=== PATIENT | female | born 1945 | race Native Hawaiian/Other Pacific Islander ===

== ENCOUNTER 2016-11-20 13:34 | Outpatient (CLI) | payer OTHER ==
[2016-11-20 15:18] LABS: POTASSIUM 4.3 mmol/L (3.6-5.2)
[2016-11-20 15:22] LABS: PLATELET COUNT 250 K/uL (152-353)
== END 2016-11-20 19:29 | disposition home or self-care (01) ==
LOC: LAB 13:34
PROVIDERS: Nurse Practitioner Family
DX: I10 Essential (primary) hypertension (principal); E78.4 Other hyperlipidemia; R73.09 Other abnormal glucose
CPT/HCPCS: 80053; 80061; 83036; 84439; 84443; 85027

== ENCOUNTER 2017-02-28 15:43 | Outpatient (CLI) | payer OTHER ==
[2017-02-28 16:13] LABS: PLATELET COUNT 253 K/uL (152-353)
[2017-02-28 16:25] LABS: POTASSIUM 4.4 mmol/L (3.6-5.2)
== END 2017-02-28 19:07 | disposition home or self-care (01) ==
LOC: LAB 15:43
PROVIDERS: Nurse Practitioner Family
DX: E78.4 Other hyperlipidemia (principal); R73.9 Hyperglycemia, unspecified; I10 Essential (primary) hypertension; R94.6 Abnormal results of thyroid function studies; N28.89 Other specified disorders of kidney and ureter; Z79.899 Other long term (current) drug therapy; E55.9 Vitamin D deficiency, unspecified; Z51.81 Encounter for therapeutic drug level monitoring
CPT/HCPCS: 80053; 80061; 82306; 82607; 83036; 84436; 84443; 85027

== ENCOUNTER 2017-04-09 13:32 | Outpatient (CLI) | payer OTHER | END 2017-04-09 14:45 | disposition home or self-care (01) | LOC: MAMMO 13:32 | DX: Z12.31 Encounter for screening mammogram for malignant neoplasm of breast (principal) | CPT/HCPCS: G0202-TC ==

== ENCOUNTER 2017-07-23 14:45 | Outpatient (CLI) | payer OTHER ==
[2017-07-23 16:13] LABS: PLATELET COUNT 258 K/uL (152-353)
[2017-07-23 16:50] LABS: POTASSIUM 4.2 mmol/L (3.6-5.2)
== END 2017-07-23 18:59 | disposition home or self-care (01) ==
LOC: LAB 14:45
PROVIDERS: Nurse Practitioner Family
DX: E78.4 Other hyperlipidemia (principal); R73.9 Hyperglycemia, unspecified; I10 Essential (primary) hypertension; Z79.899 Other long term (current) drug therapy; Z51.81 Encounter for therapeutic drug level monitoring; R94.6 Abnormal results of thyroid function studies
CPT/HCPCS: 80053; 80061; 83036; 84436; 84443; 85027

== ENCOUNTER 2017-11-08 13:59 | Outpatient (CLI) | payer OTHER ==
[2017-11-08 14:29] LABS: PLATELET COUNT 242 K/uL (152-353)
[2017-11-08 16:09] LABS: POTASSIUM 4.6 mmol/L (3.6-5.2)
== END 2017-11-08 19:25 | disposition home or self-care (01) ==
LOC: LAB 13:59
PROVIDERS: Nurse Practitioner Family
DX: E78.4 Other hyperlipidemia (principal); I10 Essential (primary) hypertension; R73.9 Hyperglycemia, unspecified; Z79.899 Other long term (current) drug therapy; Z51.81 Encounter for therapeutic drug level monitoring; E66.8 Other obesity
CPT/HCPCS: 80053; 80061; 83036; 84436; 84443; 85027

== ENCOUNTER 2018-02-06 13:02 | Outpatient (CLI) | payer OTHER ==
[2018-02-06 13:56] LABS: PLATELET COUNT 241 K/uL (152-353)
[2018-02-06 14:25] LABS: POTASSIUM 4.5 mmol/L (3.6-5.2)
== END 2018-02-06 19:30 | disposition home or self-care (01) ==
LOC: LAB 13:02
PROVIDERS: Nurse Practitioner Family
DX: E78.4 Other hyperlipidemia (principal); I10 Essential (primary) hypertension; E66.8 Other obesity; R94.6 Abnormal results of thyroid function studies; R73.9 Hyperglycemia, unspecified; Z79.899 Other long term (current) drug therapy; Z51.81 Encounter for therapeutic drug level monitoring
CPT/HCPCS: 80053; 80061; 83036; 84436; 84443; 85027

== ENCOUNTER 2018-03-12 13:07 | Outpatient (CLI) | payer OTHER ==
[2018-03-12 13:33] LABS: PLATELET COUNT 241 K/uL (152-353)
== END 2018-03-12 23:49 | disposition home or self-care (01) ==
LOC: LAB 13:07
PROVIDERS: Nurse Practitioner Family
DX: D51.8 Other vitamin B12 deficiency anemias (principal)
CPT/HCPCS: 85027

== ENCOUNTER 2020-11-25 06:52 | Emergency (ER) | payer OTHER ==
[~2020-11-25] VITALS: Ht 162.6 cm; Wt 95.3 kg
[2020-11-25 06:58] VITALS: TEMP 96.9
[2020-11-25 07:13] LABS: PLATELET COUNT 267 K/uL (152-353)
[2020-11-25 07:22] LABS: POTASSIUM 3.8 mmol/L (3.6-5.2); SODIUM 143 mmol/L (136-145)
[2020-11-25 07:25] LABS: PARTIAL THROMBOPLASTIN TIME 19.2 SECONDS (24.5-33.6)
[2020-11-25 08:04] VITALS: BP 165/66
== END 2020-11-25 08:04 | disposition home or self-care (01) ==
LOC: ED 06:52
PROVIDERS: Family Medicine
DX: K21.9 Gastro-esophageal reflux disease without esophagitis (principal); D64.89 Other specified anemias
CPT/HCPCS: 80053; 82550; 84484; 85027; 85610; 85730; 93005; 96374; 99283; 99284; J2405

== ENCOUNTER 2020-12-22 10:01 | Outpatient (CLI) | payer OTHER ==
[2020-12-22 10:35] LABS: PLATELET COUNT 295 K/uL (152-353)
[2020-12-22 10:46] LABS: POTASSIUM 4.2 mmol/L (3.6-5.2)
== END 2020-12-22 21:51 | disposition home or self-care (01) ==
LOC: LABW 10:01
PROVIDERS: ATTEND Internal Medicine
DX: N18.32 Chronic kidney disease, stage 3b (principal); R73.03 Prediabetes; R53.83 Other fatigue; D64.9 Anemia, unspecified
CPT/HCPCS: 36415; 80053; 81000; 82043; 82330; 82570; 82607; 82728; 82746; 83036; 83540; 83550; 83735; 83970; 84100; 84155; 84439; 84443; 85027; 85652; 86038

== ENCOUNTER 2020-12-24 07:50 | Outpatient (CLI) | payer OTHER | END 2020-12-24 21:45 | disposition home or self-care (01) | LOC: US 07:50 | PROVIDERS: ATTEND Internal Medicine | DX: N18.32 Chronic kidney disease, stage 3b (principal) ==

== ENCOUNTER 2022-05-01 15:54 | Emergency (ER) | payer OTHER ==
[~2022-05-01] VITALS: Ht 162.6 cm; Wt 90.7 kg
[2022-05-01 16:00] VITALS: BP 159/66; TEMP 98.3
== END 2022-05-01 17:35 | disposition home or self-care (01) ==
LOC: ED 15:54
DX: S93.491A Sprain of other ligament of right ankle, initial encounter (principal); W17.2XXA Fall into hole, initial encounter; Y92.096 Garden or yard of other non-institutional residence as the place of occurrence of the external cause
CPT/HCPCS: 99282

== ENCOUNTER → 2022-07-21 | Outpatient (CLI) | payer OTHER ==
[2022-07-21 08:49] LABS: PLATELET COUNT 351 K/uL (152-353)
[2022-07-21 09:02] LABS: POTASSIUM 3.8 mmol/L (3.6-5.2)
== END ==
LOC: LABW 08:19
PROVIDERS: ATTEND Nurse Practitioner Family
DX: D64.89 Other specified anemias (principal); N18.9 Chronic kidney disease, unspecified; E11.9 Type 2 diabetes mellitus without complications; R30.0 Dysuria; K21.9 Gastro-esophageal reflux disease without esophagitis; E78.49 Other hyperlipidemia; I12.9 Hypertensive chronic kidney disease with stage 1 through stage 4 chronic kidney disease, or unspecified chronic kidney disease; D50.8 Other iron deficiency anemias
CPT/HCPCS: 36415; 80053; 82306; 83690; 84436; 84443; 85027; 86677